=== PATIENT | male | born 1990 | race Two or more races ===

== ENCOUNTER 2021-05-06 19:20 | Emergency (ER) | payer SELFPAY ==
[2021-05-06 19:21] VITALS: BP 148/98; PULSE 94; RESP 16; TEMP 38.1; O2SAT 98; BMI 22.8
--- NOTE | 2021-05-06 19:32 | [facility].EDGENADL ---
ED Disposition Clinical Impression: Pharyngitis Disposition: Home, Self-Care Condition on Discharge: Good Additional Instructions: Return the emergency department for worsening sore throat or any other concerns within the next 8 hours otherwise follow-up with your primary care physician within the next 2 days Referrals: Provider,Mildred, [Primary Care Provider] - - Critical Care Critical Care Time: No Attestation: On 05/06/21, the high probability of a clinically significant, sudden or life threatening deterioration of the following system(s) required my full and direct attention, intervention and personal management. The time I documented below is in addition to time spent performing reported procedures but includes the following listed in this critical care notation. Medical Decision Making - Medical Records Medical records reviewed: Yes: I reviewed the patient's medical records. - Augustus Inquiry Pt receiving controlled substance: No Vital Signs: 05/06/21 19:21 Temperature 100.5 F H Temperature Source Oral Pulse Rate [Left Radial] 94 H Respiratory Rate 16 Blood Pressure [Right Arm] 148/98 H Blood Pressure Mean [Right Arm] 114 Blood Pressure Source [Right Arm] Automatic Cuff Blood Pressure Position [Right Arm] Sitting 02 Sat by Pulse Oximetry 98 Oxygen Delivery Method Room Air Orders (Tests/Meds): ED MEDICATIONS Discontinued Medications Generic Name Dose Route Start Last Admin Trade Name Freq PRN Reason Stop Dose Admin Dexamethasone 10 mg 05/06/21 19:31 Dexamethasone 1mg/1ml Intensol 10ml Udc (Er) PO 05/06/21 19:32 ONCE ONE ORDERS Category Date Time Status Covid-19 Nasal PCR (H) Routine Lab 05/06/21 19:42 Received Strep Scrn Group A (Rapid) Stat Lab 05/06/21 19:42 Received Medical Decision Narrative: 30-year-old male presents with sore throat. He is otherwise in no acute distress nontoxic-appearing does not have evidence of retropharyngeal abscess, peritonsillar abscess, sepsis, Sumit's angina or any other emergent pathology. Plan to test for coronavirus and strep throat as well as give him a dose of dexamethasone for symptom relief in the emergency department. If positive will treat strep throat if negative plan to treat symptomatically regardless. General Adult HPI - General Chief complaint: Fever Stated complaint: REID,Body aches Time Seen by Provider: 05/06/21 19:25 - History of Present Illness HPI narrative: 30-year-old male presents with 3 days of sore throat and fever. The throat pain is constant and worse with swallowing. He denies chest pain abdominal pain nausea vomiting diarrhea. Does not know if he has been exposed to coronavirus and has not been around anyone is been exposed Onset (ago): day(s) (3) Radiation: non-radiation Severity: mild Quality: dull Consistency: constant [facility] History - Hepatitis A Screen Attestation statement:: This patient has been screened for Hepatitis A risk factors. ROS Obtained: Yes All systems reviewed & no additional complaints - Constitutional Constitutional: Reports body ache, Denies chills, Reports fever(s) - Eyes Eyes: Denies blurry vision - Cardiovascular Cardiovascular: Denies chest pain - Respiratory Respiratory: Denies shortness of breath - Gastrointestinal Gastrointestingal: Denies: abdominal pain, diarrhea, nausea - Genitourinary Male Genitourinary: Denies hematuria - Musculoskeletal Musculoskeletal: Denies joint pain - Integumentary/Breasts Skin/Breast: Denies rash - Neurologic Neurologic: Denies headache(s) - Endocrine Endocrine: Denies fatigue - Hematologic/Lymphatic Henatologic/Lymphatic: Denies lymphadenopathy - Allergic/Immunologic Allergic/Immunologic: Denies hives Physical Exam - General General appearance: alert, in no apparent distress - Head Head exam: atraumatic - Eye Eye exam: Present: PERRL - ENT ENT exam: Present: other (Mild nathaly
[2021-05-06 19:57] LABS: Strep Scrn Group A (Rapid) Negative (Negative)
[2021-05-06 20:00] VITALS: BP 123/78; PULSE 78; RESP 16; O2SAT 97
[2021-05-06 20:06] LABS: Influenza A, PCR Not Detected (NotDetected); Influenza B, PCR Not Detected (NotDetected)
[2021-05-06 20:31] LABS: Coronavirus 19, PCR Detected (NotDetected)
--- NOTE | 2021-05-06 20:32 | PC.NURSE ---
call from lab patient is positive for covid
[2021-05-06 21:05] VITALS: BP 129/86; PULSE 84; RESP 16; TEMP 37.7; O2SAT 99
== END 2021-05-06 21:07 | disposition home or self-care (01) ==
PROVIDERS: Emergency Provider Emergency Medicine
DX: U07.1 COVID-19 (principal)
CPT/HCPCS: 87430; 99282; U0003